=== PATIENT | female | born 2000 | race Caucasian/White ===

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

== ENCOUNTER 2023-02-18 00:29 | Emergency (ER) | payer MEDICAID ==
[~2023-02-18] VITALS: Ht 165.1 cm; Wt 150.0 kg
[2023-02-18 00:55] VITALS: BP 128/68
== END 2023-02-18 02:29 | disposition home or self-care (01) ==
LOC: ER 00:30
DX: J06.9 Acute upper respiratory infection, unspecified (principal); Z20.822 Contact with and (suspected) exposure to COVID-19; H57.89 Other specified disorders of eye and adnexa; Z79.899 Other long term (current) drug therapy
CPT/HCPCS: 87081; 87502; 87503; 87811; 87880; 99283

== ENCOUNTER 2023-11-22 08:39 | Emergency (ER) | payer MEDICAID ==
[~2023-11-22] VITALS: Ht 165.1 cm; Wt 122.7 kg
[2023-11-22 10:09] VITALS: BP 162/103; PULSE 103; RESP 18; O2SAT 98
[2023-11-22] MEDS ORDERED: AMOX-580 PO (10:53)
[2023-11-22 12:38] VITALS: TEMP 99.4
== END 2023-11-22 12:40 | disposition home or self-care (01) ==
LOC: ER 08:39
DX: J06.9 Acute upper respiratory infection, unspecified (principal); Z20.822 Contact with and (suspected) exposure to COVID-19; J02.9 Acute pharyngitis, unspecified; Z79.2 Long term (current) use of antibiotics; Z79.899 Other long term (current) drug therapy
CPT/HCPCS: 36415; 71045; 87502; 87503; 87811; 99284